=== PATIENT | male | born 1970 ===

== ENCOUNTER 2017-04-10 21:34 | Emergency (ER) | payer OTHER ==
[~2017-04-10] VITALS: Ht 157.5 cm; Wt 180.0 kg
[2017-04-10 21:39] VITALS: Ht 157.5 cm; Wt 180.0 kg
[2017-04-10] MEDS ORDERED: IBUPROFEN 800 MG TAB PO ONE (22:00)
[2017-04-10] MEDS ORDERED: IBUP-1542 PO (22:31)
[2017-04-10 22:44] VITALS: BP 152/85; PULSE 89; RESP 20; TEMP 98.3
--- NOTE | 2017-04-10 22:47 | RADRPT ---
PROCEDURE: X-ray right knee CLINICAL INDICATION: Pain TECHNIQUE: AP, lateral, and tunnel views of the right knee were obtained. COMPARISON: None. FINDINGS: There is no acute fracture. The visualized bones are normally aligned and the joint spaces are main tained. Bone mineralization is normal. The soft tissues are unremarkable. A small suprapatellar madelaine int effusion is present. IMPRESSION: Small suprapatellar joint effusion. No evidence of an acute fracture or dislocation. RPTAT: PP .Shara Raymond MD, MD Date Time Electronically viewed and signed by .Shara Raymond MD, on 04/10/2017 22:47 .K/
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
== END 2017-04-10 22:45 ==
LOC: E/R 21:34
DX: S89.91XA Unspecified injury of right lower leg, initial encounter (principal); Y04.0XXA Assault by unarmed brawl or fight, initial encounter
CPT/HCPCS: 73562